=== PATIENT | male | born 1995 | race Two or more races ===

== ENCOUNTER 2024-12-12 01:43 | Emergency (ER) | payer MEDICAID, SELFPAY ==
[2024-12-12 01:44] VITALS: BMI 29.2
[2024-12-12 01:56] VITALS: BP 132/87; PULSE 78; RESP 18; TEMP 36.6; O2SAT 100
--- NOTE | 2024-12-12 02:14 | XR_ITS ---
Examination: CT abdomen and pelvis without contrast. Coronal 3-D reconstructions. Sagittal 2-D reconstructions. Date and time of exam: December 12, 2024, 0238 hours INDICATIONS: Onset left flank pain beginning one hour ago CTDI: vol (mGy): 8.19. DLP: (mGycm): 505. Technique: Axial images of the abdomen have been obtained, 3 mm slice thickness Intravenous contrast material has not been administered. Low dose protocols were performed. One or more of the following dose reduction techniques were used; automated exposure control, adjustment of the mA and/or KV according to patient size, use of iterative reconstruction technique. Findings: Liver mildly irregular in contour, no focal liver or splenic lesions No gallstones No pancreatic or adrenal mass 16 mm mass at the posterior margin right kidney Minimal left hydronephrosis, 3 mm left ureterovesical junction calculus Normal appendix Contracted urinary bladder IMPRESSION: Recommend renal sonography to assess 16 mm mass posterior margin right kidney Minimal left hydronephrosis, 3 mm left ureterovesical junction calculus
--- NOTE | 2024-12-12 02:15 | EDRME_ITS ---
Rapid Medical Screening Exam [facility] Arrival date/time: 12/12/24 01:43 29M with no significant PMH presents to ED with several hours of sudden L flank pain and N/V. Chief Complaint: Back Pain/Injury Vital signs: Vital Signs Temperature 97.8 F 12/12/24 01:56 Pulse Rate 78 12/12/24 01:56 Respiratory Rate 18 12/12/24 01:56 Blood Pressure 132/87 H 12/12/24 01:56 Pulse Oximetry (%) 100 12/12/24 01:56 Oxygen Delivery Method Room Air 12/12/24 01:56
--- NOTE | 2024-12-12 02:45 | PD.EDBACK ---
ED Back Injury Pain RME/HPI General Chief Complaint: Back Pain/Injury Stated Complaint: LEFT FLANK PAIN Time Seen by Provider: 12/12/24 02:47 Arrival date/time: 12/12/24 01:43 RME / HPI RME / HPI Narrative: 12/12/24 01:43 29M with no significant PMH presents to ED with several hours of sudden L flank pain and N/V. --------- Dr. Coe?s Main ED Evaluation: 29yo male with no significant past medical history presents to the ED for a chief complaint of left flank pain x 3 hours. No radiation or migration. Patient reports associated N/V. Denies any other associated symptoms. He denies any history of similar symptoms. NKA. Related Data Previous Rx's ?Medication ?Instructions ?Recorded cephalexin 500 mg capsule 500 mg PO TID #15 caps 12/12/24 naproxen 500 mg tablet (Naprosyn) 500 mg PO BID PRN pain #20 tabs 12/12/24 tamsulosin 0.4 mg capsule (Flomax) 0.4 mg PO QDAY 7 days #7 caps 12/12/24 Allergies Allergy/AdvReac Type Severity Reaction Status Date / Time No Known Allergies Allergy Verified 05/12/21 13:17 Review of Systems Review of Systems Systems Reviewed: All systems reviewed, normal except as documented Past Medical History Social History SMOKING STATUS: Current every day smoker ED Exam Narrative Physical exam: Generally patient is in mild distress secondary to pain abdomen soft bowel sounds present nondistended left lower lateral abdominal tenderness without rebound. Mild left-sided costovertebral angle tenderness. Heart regular rate and rhythm lungs clear to auscultation equal bilaterally skin warm pale and dry neurologic exam no focal motor or sensory deficits cranial nerves II through XII grossly intact Course Quality Measures none Orders Category Date Time Status CT abdomen pelvis wo con Stat Exams 12/12/24 02:14 Taken Drug Screen,Urine Stat Lab 12/12/24 02:15 Ordered Urinalysis, C/S if Indicated Stat Lab 12/12/24 02:14 Ordered Ketorolac Inj [Toradol Inj] Med 12/12/24 02:14 Discontinued 60 mg IM X1 ONE Ondansetron Odt [Zofran Odt] Med 12/12/24 02:14 Discontinued 4 mg PO X1 ONE Vital Signs Vital signs: Vital Signs Temperature 97.8 F 12/12/24 01:56 Pulse Rate 78 12/12/24 01:56 Respiratory Rate 18 12/12/24 01:56 Blood Pressure 132/87 H 12/12/24 01:56 Pulse Oximetry (%) 100 12/12/24 01:56 Oxygen Delivery Method Room Air 12/12/24 01:56 Back Pain / Injury MDM Narrative MDM Narrative:: Scribe Attestation: 12/12/24 - Nestor, Laurie Tapia am scribing for and in the presence of Dr. Coe. CT scan done the abdomen and pelvis without contrast showed the patient have a 3 mm stone in the left ureterovesicular junction with mild left-sided hydroureteronephrosis. Patient was unable to give a urine sample here in the emergency room today. He is afebrile. He will be started on Naprosyn Flomax and cephalexin to be taken as prescribed. Follow-up with his doctor. Return to ER as needed or if condition worsens. Here in the emergency room the patient was given Toradol 60 mg IM which controlled the pain and he is also given Zofran 4 mg p.o. Patient had no episodes of vomiting here in the emergency room. Patient data External records reviewed:: [facility] previous records (Per chart review, patient has no relevant previous ED visits or admissions to this facility.) Clinical information provided by:: patient Social determinants that could affect healthcare access:: none Patient has the following chronic illnesses:: none How is presenting disease/condition affected by chronic disease/condition?: no chronic disease Evaluation data The following diagnostics were reviewed and interpreted by me:: radiology exam(s) Lab and/or radiology exams considered but not ordered:: none Interpretation Summary: [facility] Preliminary Report Draft Patient: FELIPE LIU Record#: [id number] Birthdate: 1995 Age/Sex: 29 / M Location: [facility] Attending Dr: Ordering Physician: Date of Service: Procedure(s): Accession Number(s): cc: ~ CT scan of the abdomen and pelvis without intravenous contrast (axial sections with sagittal and coronal reformats) December 12, 2024 at 0238 hours Clinical History: Left flank pain. Comparison: None. Findings: The lung bases are clear. The liver, gallbladder, pancreas, spleen, and adrenals are unremarkable on this noncontrast study. Left UVJ stone measuring 0.3 cm, the stone is not visible on the seafood technology specialist image, mild left hydroureteronephrosis. No evidence of bowel obstruction. No evidence of appendicitis. There is no mesenteric or retroperitoneal adenopathy. The urinary bladder is unremarkable. There is no free fluid or free air. The osseous structures are unremarkable. Impression: Left UVJ stone associated with hydroureteronephrosis. Report Electronically Signed By: Kwabena Brown 12/12/2024 3:34:26 AM Medications / Prescriptions Medications or Prescriptions considered but not ordered:: none Medication administrations:: Medication Administration History Discontinued Medications Ketorolac Tromethamine (Ketorolac Inj 60 Mg/2 Ml Vial) 60 mg IM X1 ONE Stop: 12/12/24 02:15 Last Admin: 12/12/24 02:57 Dose: 60 mg Documented By: VANDANA Ondansetron HCl (Ondansetron Odt 4 Mg Tabrap) 4 mg PO X1 ONE; Protocol Stop: 12/12/24 02:15 Last Admin: 12/12/24 02:58 Dose: 4 mg Documented By: VANDANA see above Consultations Consultation(s) initiated? (list below): No Diagnosis Differential diagnosis back pain/injury: renal colic, pyelonephritis and other (cystitis, UTI) Most likely diagnosis given after review of the tests above:: see clinical impression below Admission Indicated Admission indicated?: not indicated Admission Request Was there a request for admission?: No Disposition Plan Disposition Plan: Discharge Discharge Attestation Discharge Attestation: The patient and all family members were given an opportunity to ask questions and understood the discharge instructions. Discharge instructions specifically effects, indications for sooner follow up or return to the emergency department, and the expected course of current diagnosis. Patient condition: Stable Discharge Plan Plan Patient Disposition: HOME (Self Care) Prescriptions/Referrals Prescriptions/Med Rec: New tamsulosin [Flomax] 0.4 mg capsule 0.4 mg PO QDAY 7 Days Qty: 7 0RF naproxen [Naprosyn] 500 mg tablet 500 mg PO BID PRN (Reason: pain) Qty: 20 0RF cephalexin 500 mg capsule 500 mg PO TID Qty: 15 0RF Referrals: Ramón Erazo MD [Primary Care Provider] - In 1 week Problem List Clinical Impression: Kidney stone Patient/Caregiver Discharge Instructions Print Language: Malian Stand Alone Forms: [facility]aitlyn Award Info., Patient Portal Info Letter
[2024-12-12] MEDS: KETOROLAC INJ 60 MG/2 ML VIAL IM (02:57)
[2024-12-12] MEDS: ONDANSETRON ODT 4 MG TABRAP PO (02:58)
[2024-12-12 03:02] VITALS: BP 147/61; PULSE 69; RESP 20; TEMP 36.8; O2SAT 95
--- NOTE | 2024-12-12 03:35 | PRELIM_ITS ---
CT scan of the abdomen and pelvis without intravenous contrast (axial sections with sagittal and coronal reformats) December 12, 2024 at 0238 hours Clinical History: Left flank pain. Comparison: None. Findings: The lung bases are clear. The liver, gallbladder, pancreas, spleen, and adrenals are unremarkable on this noncontrast study. Left UVJ stone measuring 0.3 cm, the stone is not visible on the manager in home image, mild left hydroureteronephrosis. No evidence of bowel obstruction. No evidence of appendicitis. There is no mesenteric or retroperitoneal adenopathy. The urinary bladder is unremarkable. There is no free fluid or free air. The osseous structures are unremarkable. Impression: Left UVJ stone associated with hydroureteronephrosis. Report Electronically Signed By: Kwabena Brown 12/12/2024 3:34:26 AM [EST]
[2024-12-12 03:52] VITALS: BP 135/72; PULSE 76; RESP 16; TEMP 36.7; O2SAT 98
== END 2024-12-12 03:53 | disposition home or self-care (01) ==
PROVIDERS: Emergency Provider Emergency Medicine; PCP Family Medicine
DX: N13.2 Hydronephrosis with renal and ureteral calculous obstruction (principal)
CPT/HCPCS: 74176; 80053; 80307; 81001; 83690; 85025; 96372; 99283; J1885; Q0162